=== PATIENT | female | born 1990 | race Caucasian/White ===

== ENCOUNTER 2017-09-25 15:58 | Emergency (ER) | payer MEDICAID, OTHER ==
[~2017-09-25] VITALS: Ht 165.1 cm; Wt 100.0 kg
[~2017-09-25 15:58] MED LIST: FLUO20SO3 PO
[2017-09-25 16:16] VITALS: BP 154/91; PULSE 92; RESP 17; TEMP 98.4; O2SAT 99
--- NOTE | 2017-09-25 17:17 | PD ---
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 She says the bleeding lasts up to about 12 hours and then goes away. She denies painful sex , pelvic pain, abnormal vaginal discharge, odor, lesions. Denies dysuria, hematuria, urinary frequency. No vaginal bleeding now. Has not taken any medications or try any treatments to alleviate her symptoms. Aggravated with sex. Relieved without sex. Last menstrual period 3-1/2 weeks ago. Denies contraception use. Primary care provider and hoist mechanic is Dr. Baird and she tried to make an appointment but cannot be seen until November. No known allergies. Denies significant past medical history. Has no other medical complaints. No other modifying factors or associated signs and symptoms. PFSH Past Medical History Anxiety: Yes Depression: Yes Diminished Hearing: No ?: Unknown Social History Alcohol Use: No Tobacco Use: Yes (4-5CIGS PER DAY ) Substance Use: No Allergies-Medications (Allergen,Severity, Reaction): Coded Allergies: No Known Allergies (Unverified , 03/28/16) Reported Meds & Prescriptions Reported Meds & Active Scripts Active Reported Prozac (Fluoxetine HCl) 20 Mg/5 Ml Liqd 40 Mg PO DAILY Review of Systems Except as stated in HPI: all other systems reviewed are Neg Physical Exam Narrative GENERAL: Well-nourished, well-developed female patient, in no acute distress; afebrile, nontoxic-appearing SKIN: Warm and dry. HEAD: Atraumatic. Normocephalic. EYES: Pupils equal and round. No scleral icterus. No injection or drainage. ENT: Mucous membranes pink and moist. NECK: Trachea midline. No lymphadenopathy. CARDIOVASCULAR: Regular rate. RESPIRATORY: No accessory muscle use. GASTROINTESTINAL: Abdomen soft, non-tender, nondistended. Bilateral pelvic region nontender to palpation. Hepatic and splenic margins not palpable. No guarding, rigidity, rebound tenderness. PELVIC: Exam done in the presence of a nurse. Speculum exam reveals nonedematous and nonerythematous cervix with mucopurulent, foul-smelling discharge. There is an area around the opening of the cervix that appears thin skinned and red that may be the source of bleeding after sex; no bleeding illicited on exam; no blood noted coming from the cervix or opening of the cervix. Bimanual exam reveals no palpable masses or adnexa tenderness, no uterine tenderness. No cervical motion tenderness. BACK: No CVA tenderness. MUSCULOSKELETAL: No obvious deformities. No clubbing. No cyanosis. No edema. NEUROLOGICAL: Awake and alert. No obvious cranial nerve deficits. Motor grossly within normal limits. Normal speech. PSYCHIATRIC: Appropriate mood and affect; insight and judgment normal. Data Data Last Documented VS Vital Signs Date Time Temp Pulse Resp B/P (MAP) Pulse Ox O2 Delivery O2 Flow Rate FiO2 09/25/17 16:16 98.4 92 17 154/91 (112) 99 Orders Orders Gc And Chlamydia Pcr (09/25/17 17:12) Wet Prep Profile (09/25/17 17:12) Urinalysis - C+S If Indicated (09/25/17 17:12) Ed Urine Pregnancytest Poc (09/25/17 17:12) Urine Culture (09/25/17 17:20) Labs Laboratory Tests Test 09/25/17 17:20 09/25/17 18:19 Urine Color YELLOW Urine Turbidity HAZY Urine pH 6.0 Urine Specific [place] 1.027 Urine Protein TRACE mg/dL Urine Glucose (UA) NEG mg/dL Urine Ketones NEG mg/dL Urine Occult Blood TRACE Urine Nitrite NEG Urine Bilirubin NEG Urine Urobilinogen LESS THAN 2.0 MG/DL Urine Leukocyte Esterase LARGE Urine RBC 4 /hpf Urine WBC 33 /hpf Urine Squamous Epithelial Cells 13 /hpf Urine Amorphous Sediment RARE Urine Bacteria RARE /hpf Urine Mucus FEW /lpf Microscopic Urinalysis Comment CULTURE INDICATED Clue Cells (Wet Prep) NONE SEEN Vaginal Trichomonas (Wet Prep) NONE SEEN Vaginal Yeast (Wet Prep) NONE SEEN MDM Medical Decision Making Medical Screen Exam Complete: Yes Emergency Medical Condition: Yes Medical Record Reviewed: Yes Differential Diagnosis Vaginal bleeding, vaginal lesion, vaginal laceration, genital warts Narrative Course 27-year-old female with vaginal bleeding only after sex for the past 3 weeks. Denies pain for sex or pelvic pain. Denies vaginal or urinary symptoms. Wet prep, chlamydia, gonorrhea, urinalysis, UPT ordered. 1830: No evidence of cervicitis on exam. The patient will not be empirically treated for cervicitis. Will wait for chlamydia and gonorrhea to result. 1906: Vaginal yeast, vaginal trichomonas, clue cells negative. Urinalysis with signs of infection. Coumadin gonorrhea pending. Keflex prescribed for home. Instructed patient to follow-up with hoist mechanic. Instructed patient to follow up with primary care provider. Patient verbalizes understanding and agreement with treatment plan. Patient is medically cleared and stable for discharge. Discussed reasons to return to the emergency department. Patient agrees with treatment plan. The patients vital signs are stable and the patient is stable for outpatient follow-up and treatment. Patient discharged home, stable and in no acute distress. Diagnosis Primary Impression: Vaginal bleeding Additional Impression: UTI (urinary tract infection) Qualified Codes: N39.0 - Urinary tract infection, site not specified; R31.9 - Hematuria, unspecified Referrals: Mechanical Engineering Technician Primary Care Physician Patient Instructions: General Instructions, Urinary Tract Infection in Women ( ED) Additional Instructions: Take antibiotics as prescribed and complete full course Drink plenty of fluids Maintain good personal hygiene Follow-up with primary care provider Follow-up with hoist mechanic Return to the emergency department immediately with worsening of symptoms Med/Other Pt SpecificInfo: Prescription(s) given Scripts Cephalexin (Keflex) 500 Mg Cap 500 MG PO Q12H for Infection for 7 Days, #14 CAP 0 Refills Prov: Reshma Westfall 09/25/17 Disposition: 01 DISCHARGE HOME Condition: Stable Reshma Westfall Sep 25, 2017 17:17
[2017-09-25 18:44] LABS: AMORPHOUS SEDIMENT, URINE RARE; BACTERIA, URINE RARE /hpf; BILIRUBIN, URINE NEG (NEG); BLOOD, URINE TRACE (NEG); GLUCOSE,URINE NEG (NEG); KETONE, URINE NEG (NEG); MUCUS URINE FEW /lpf (OCC); NITRITE,URINE NEG (NEG); SQUAMOUS EPITHELIAL CELL URINE 13 /hpf (0-5); URINE COLOR YELLOW (YELLW/STRAW); URINE LEUKOCYTE ESTERASE LARGE (NEG)
[2017-09-25] MEDS ORDERED: CEPH-460 PO (19:08)
== END 2017-09-25 19:43 | disposition home or self-care (01) ==
LOC: NEPD 15:58
DX: N93.0 Postcoital and contact bleeding (principal); N39.0 Urinary tract infection, site not specified; R31.9 Hematuria, unspecified; F17.210 Nicotine dependence, cigarettes, uncomplicated
CPT/HCPCS: 81001; 84703; 87086; 87210; 87491; 87591; 99284